=== PATIENT | male | born 1970 | race Caucasian/White ===

== ENCOUNTER 2018-10-07 18:50 | Emergency (ER) | payer SELFPAY ==
[~2018-10-07] VITALS: Ht 175.3 cm; Wt 70.0 kg
--- NOTE | 2018-10-07 19:26 | NUR ---
PT BIB WITH REQUEST TO DETOX FROM ETOH. LAST DRINK WAS 15 MINUTES AGO. USUALLY DRINKS 0.5 G[place] OF WHISKEY. PT STATES SORES TO BOTH FEET AND DARK BLOODY STOOLS FOR 2 MONTHS. MONITORS APPLIED, SIDERAILS UP X2, CALL LIGHT WITHIN REACH. ERP AT BEDSIDE FOR EVAL
[2018-10-07] MEDS ORDERED: THIAMINE 100MG TABLET PO ONE (19:30)
[2018-10-07] MEDS ORDERED: THIAMINE 100MG TABLET ONE (19:39)
--- NOTE | 2018-10-07 19:46 | NUR ---
PT MEDICATED PER MAR
[2018-10-07 19:59] LABS: ALANINE AMINOTRANSFERASE 162 U/L (12-78); ALBUMIN 3.9 g/dL (3.4-5.0); ANION GAP 8 mmol/L (5-15); CHLORIDE 105 mmol/L (98-107); CREATININE 0.66 mg/dL (0.7-1.3)
[2018-10-07 20:02] LABS: ALKALINE PHOSPHATASE 81 U/L (45-117); BILIRUBIN,TOTAL 0.8 mg/dL (0.2-1.0); TOTAL PROTEIN 8.6 g/dL (6.4-8.2)
--- NOTE | 2018-10-07 20:15 | NUR ---
PT UP IN DEVINE WANDERING AROUND, ASSISTED PT BACK TO ROOM AND REAPPLIED MONITORS, PT STATED " I WANT TO SEE TH ", INFORMED PT THAT DR WAS NOTIFIED AND THAT HE WILL BE IN TO SEE HIM
[2018-10-07 20:20] LABS: BASOPHILS # (AUTO) 0.04 x10^3/uL (0-0.1); BASOPHILS % (AUTO) 1 % (0-1); EOSINOPHILS # (AUTO) 0.04 x10^3/uL (0-0.4); EOSINOPHILS % (AUTO) 1 % (1-7); LYMPHOCYTES # (AUTO) 1.67 x10^3/uL (1-3.4); LYMPHOCYTES % (AUTO) 20 % (22-44); MD NO; MEAN CORPUSCULAR HEMOGLOBIN 34.4 pg (27.5-34.5); MEAN CORPUSCULAR HGB CONC 33.4 g/dL (33.2-36.2); MEAN CORPUSCULAR VOLUME 103.1 fL (81-97); MEAN PLATELET VOLUME 9.2 fL (7.4-10.4); MONOCYTES % (AUTO) 11 % (2-9); NEUTROPHILS # (AUTO) 5.81 x10^3/uL (1.8-6.8); NEUTROPHILS % (AUTO) 69 % (42-75); PLATELET COUNT 110 x10^3/uL (130-400); RED BLOOD COUNT 4.82 x10^6/uL (4.38-5.82); RED CELL DISTRIBUTION WIDTH 14.4 % (9.4-14.8)
[2018-10-07 20:26] LABS: INTERNATIONAL NORMALIZED RATIO 0.89 (0.93-1.1); PROTHROMBIN TIME 9.4 Seconds (9.6-11.5)
[2018-10-07 20:46] VITALS: BP 121/80
--- NOTE | 2018-10-07 20:47 | NUR ---
PT RESTING ON GURNEY WITH EYES CLOSED, OPENS EYES TO VERBAL RESPONSE, RESPIRATIONS EVEN AND UNLABORED, SPOUSE AT BEDSIDE, SIDERAILS UP X2, CALL LIGHT WITHIN REACH.
== END 2018-10-07 21:29 | disposition home or self-care (01) ==
LOC: ED 21:19
DX: K70.10 Alcoholic hepatitis without ascites (principal); F10.129 Alcohol abuse with intoxication, unspecified; F17.200 Nicotine dependence, unspecified, uncomplicated
CPT/HCPCS: 36415; 80053; 83690; 85025; 85610; 99283